=== PATIENT | male | born 1950 | race Caucasian/White ===

== ENCOUNTER 2021-03-28 13:17 | Emergency (ER) | payer OTHER ==
[2021-03-28] MEDS ORDERED: TRIAMCINOLONE 080 GM TOP (15:09)
== END 2021-03-28 15:31 | disposition home or self-care (01) ==
LOC: FER 13:17
DX: L20.9 Atopic dermatitis, unspecified (principal); F17.210 Nicotine dependence, cigarettes, uncomplicated
CPT/HCPCS: 99282